=== PATIENT | female | born 1975 | race Two or more races ===

== ENCOUNTER → 2022-04-07 | Outpatient (CLI) | payer BC ==
--- NOTE | 2022-04-08 18:57 | MM ---
Reason for Exam: Screening (asymptomatic). Last mammogram was performed 4 year(s) and 2 month(s) ago. Patient History: Menarche at age 13. First Full-Term at age 21. Risk Values: Margarette 5 year model risk: 0.8%. NCI Lifetime model risk: 8.5%. Prior Study Comparison: 01/22/2018 Bilateral MG 3D screening mammo w/cad, Unknown. 01/29/2018 Bilateral MG 3D diag mammo w/cad [facility]OOKS - 2, Unknown. Tissue Density: There are scattered fibroglandular densities. Findings: Analyzed By CAD. Areas of asymmetric density on the left remain unchanged. No significant change from prior exams. Overall Assessment: Benign, BI-RAD 2 Management: Screening Mammogram of both breasts in 1 year. 1. Patient should continue monthly self breast exams. 2. A clinical breast exam by your physician is recommended on an annual basis. 3. This exam should not preclude additional follow-up of suspicious palpable abnormalities. Electronically signed and approved by: Asmita Polanco M.D. Radiologist
== END | disposition home or self-care (01) ==
LOC: RADMAMWWP 15:21
PROVIDERS: ATTEND Family Medicine
DX: Z12.31 Encounter for screening mammogram for malignant neoplasm of breast (principal)
CPT/HCPCS: 77063; 77067